=== PATIENT | male | born 1985 | race African-American/Black ===

== ENCOUNTER 2020-08-09 00:01 | Emergency (ER) | payer OTHER ==
[2020-08-09] MEDS ORDERED: Ibuprofen 200 MG TAB ONE (00:39)
== END 2020-08-09 01:22 | disposition home or self-care (01) ==
LOC: BURERS 00:01
DX: S43.401A Unspecified sprain of right shoulder joint, initial encounter (principal); S46.811A Strain of other muscles, fascia and tendons at shoulder and upper arm level, right arm, initial encounter; S60.512A Abrasion of left hand, initial encounter; S60.511A Abrasion of right hand, initial encounter; V89.2XXA Person injured in unspecified motor-vehicle accident, traffic, initial encounter
CPT/HCPCS: 70450; G0390